=== PATIENT | female | born 1970 | race Caucasian/White ===

== ENCOUNTER 2023-12-16 04:32 | Day surgery (SDC) | payer OTHER ==
[2023-12-11 13:49] VITALS: BMI 19.9
[2023-12-16 09:44] VITALS: TEMP 97.8
[2023-12-16 10:13] VITALS: BP 103/61; PULSE 62; RESP 15
== END 2023-12-16 10:20 | disposition home or self-care (01) ==
LOC: JASU-ENDO 04:32
PROVIDERS: ATTEND Internal Medicine Gastroenterology
PROC: 0DBN8ZX Excision of Sigmoid Colon, Via Natural or Artificial Opening Endoscopic, Diagnostic (ICD-10-PCS; 2023-12-16)
PROC: 0DBP8ZX Excision of Rectum, Via Natural or Artificial Opening Endoscopic, Diagnostic (ICD-10-PCS; principal; 2023-12-16 09:00)
DX: Z12.11 Encounter for screening for malignant neoplasm of colon (principal); D12.8 Benign neoplasm of rectum; K63.5 Polyp of colon; K64.8 Other hemorrhoids
CPT/HCPCS: 88305-TC